=== PATIENT | female | born 1990 | race American Indian/Alaskan Native ===

== ENCOUNTER 2021-05-04 06:35 | Emergency (ER) | payer SELFPAY ==
[2021-05-04 06:52] VITALS: BP 120/61
--- NOTE | 2021-05-04 07:07 | Emergency Department Report ---
Upper Extremity - HPI Chief Complaint: Extremity Injury, Upper Stated Complaint: right elbow pain Time Seen by Provider: 05/04/21 06:41 Other History: Patient presents with right elbow pain. This is nontraumatic in nature. 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 This started bothering her 2 to 3 days ago. She thought that she had may be just strained it or done something with her coaching. She states that the pain is progressively worsened. This morning, it woke her up twice. It is a sharp and stabbing pain with an aching component. This is in the right elbow. It does not radiate or migrate. She is right-hand dominant. The pain feels as though it is in the "dimples of the elbow." She has no fevers or chills per there is no cough or congestion. ED Review of Systems ROS: Stated complaint: right elbow pain Other details as noted in HPI Comment: All other systems reviewed and negative Constitutional: denies: fever Eyes: denies: eye pain ENT: denies: throat pain Respiratory: denies: cough Cardiovascular: denies: chest pain Endocrine: denies: unexplained weight loss Gastrointestinal: denies: abdominal pain Musculoskeletal: denies: back pain Skin: denies: rash Neurological: denies: numbness, paresthesias Hematological/Lymphatic: denies: easy bruising ED Past Medical Hx - Past Medical History Previous Medical History?: Yes Hx Asthma: Yes - Surgical History Past Surgical History?: No - Family History Family history: no significant - Social History Smoking Status: Never Smoker Substance Use Type: Marijuana - Medications Home Medications: Home Medications Medication Instructions Recorded Confirmed Last Taken Type Naproxen Sodium [Naproxen Sodium 550 mg PO BID #14 tablet 05/04/21 Unknown Rx 550mg] Upper Extremity Exam - Exam General: Vital signs noted. No distress. Alert and acting appropriately. Head and Torso: No HEENT Abnormality, No Chest/Lungs Abnormality, No Abdominal Tenderness, No Back Tenderness Shoulder Exam: Yes Normal Range of Motion in Shoulder, No Shoulder Tenderness, No Clavicle Tenderness, No Shoulder Deformity, No AC Joint Tenderness Arm Exam: No Arm/Humerus Tenderness, No Arm Deformity Elbow: Yes Elbow Tenderness (Medial and lateral epicondyles), No Normal Range of Motion in Elbow (Limited flexion, extension, and pronation), No Elbow Deformity Forearm: Yes Pain with Pronation, Yes Pain with Supination, No Forearm Tenderness, No Forearm Deformity Wrist: Yes Normal ROM in Wrist, No Wrist Tenderness, No Wrist Deformity, No Snuffbox Tenderness, No Pain with Axial Thumb Compression Hand: Yes Normal ROM in Digit(s), No Hand Tenderness, No Hand Deformity, No Digit Tenderness, No Digit(s) Deformity, No Tendon Dysfunction CMS Exam: Yes Normal Distal Pulses, Yes Normal Capillary Refill, Yes Normal Distal Sensation, No Broken Skin ED Course Vital Signs 05/04/21 06:41 Temperature 98.2 F Pulse Rate 52 L Respiratory 16 Rate Blood Pressure 120/61 O2 Sat by Pulse 100 Oximetry - Reevaluation(s) Reevaluation #1: 05/04/21 07:06 Patient was discharged. Old records reviewed. ED Medical Decision Making - Medical Decision Making Patient presents with nontraumatic right elbow pain. This seems to be consistent with a tendinitis. There is no trauma that would suggest fracture or dislocation. She has good pulses with normal sensation. I do not believe this represents any type of vascular compromise or neurologic insult. Patient does not has warmth or erythema involving the elbow. I am not concerned for septic arthritis. This is monoarticular. Critical Care Time: No Critical care attestation.: If time is entered above; I have spent that time in minutes in the direct care of this critically ill patient, excluding procedure time. ED Disposition Clinical Impression: Elbow tendonitis Disposition: 01 HOME / SELF CARE / HOMELESS Is pt being admited?: No Condition: Stable Instructions: Tennis Elbow Additional Instructions: ICE AND REST. WEAR THE SLING. RETURN FOR PROBLEMS. CONTINUE TO USE VOLTAREN GEL AT HOME. Prescriptions: Naproxen Sodium [Naproxen Sodium 550mg] 550 mg PO BID #14 tablet Referrals: PRIMARY CAREMD [Referring] - 3-5 Days TARAH GRAY MD [Staff Physician] - 3-5 Days
== END 2021-05-04 07:46 | disposition home or self-care (01) ==
LOC: ED 06:35
DX: M77.8 Other enthesopathies, not elsewhere classified (principal); J45.909 Unspecified asthma, uncomplicated; F12.90 Cannabis use, unspecified, uncomplicated; Z79.899 Other long term (current) drug therapy
CPT/HCPCS: 99282